=== PATIENT | female | born 1940 | race Caucasian/White ===

== ENCOUNTER 2017-08-13 12:27 | Inpatient (IN) | payer OTHER, MEDICARE ==
[~2017-08-13] VITALS: Ht 152.4 cm; Wt 68.2 kg
[~2017-08-13 12:27] MED LIST: AMLO5TAB88 PO; MOTRIN
[2017-08-13 13:38] LABS: BASOPHILS % 0.4 % (0.0-2.0); EOSINOPHILS % 0.3 % (0.0-5.0); HEMATOCRIT. 43.6 % (36.0-48.0); HEMOGLOBIN. 14.7 g/dL (12.0-16.0); LYMPHOCYTES % 15.9 % (20.0-50.0); MEAN CORPUSCULAR HEMOGLOBIN 27.2 pg (28.0-32.0); MEAN CORPUSCULAR VOLUME 80.7 fL (81.0-99.0); MEAN PLATELET VOLUME 8.3 fl (7.4-10.4); NEUTROPHILS % 76.4 % (40.0-76.0); PLATELET 116 x1000/uL (130-400); RED BLOOD CELL COUNT 5.41 mill/uL (4.2-5.4); RED CELL DISTRIBUTION WIDTH 14.4 % (11.6-14.6)
[2017-08-13 13:44] LABS: PROTHROMBIN TIME 10.7 sec (9.4-11.6)
[2017-08-13 13:49] LABS: CHLORIDE 100 mEq/L (98-107)
[2017-08-13 13:55] LABS: TROPONIN I < 0.02 ng/mL (0.00-0.04)
[2017-08-13 14:22] LABS: HEPATITIS B SURFACE ANTIGEN NEGATIVE
[2017-08-13 14:50] LABS: HEPATITIS B CORE AB IGM NEGATIVE
[2017-08-13 14:52] LABS: HEPATITIS A AB IGM NEGATIVE (NEGATIVE)
[2017-08-13 15:01] LABS: CLARITY URINE CLOUDY (CLEAR); COLOR URINE YELLOW (YELLOW); KETONES URINE 2+ (NEGATIVE); LEUKOCYTE ESTERASE URINE 3+ (NEGATIVE); NITRITE URINE NEGATIVE (NEGATIVE); OCCULT BLOOD URINE 1+ (NEGATIVE); PH URINE 5.5 (4.5-8.0); PROTEIN URINE 1+ (NEGATIVE); SPECIFIC GRAVITY URINE 1.022 (1.005-1.030)
[2017-08-13 15:25] LABS: *AMPHETAMINES SCREEN URINE NEGATIVE (NEGATIVE); *BARBITURATES SCREEN URINE NEGATIVE (NEGATIVE); *BENZODIAZEPINES SCREEN URINE NEGATIVE (NEGATIVE); *COCAINE SCREEN URINE NEGATIVE (NEGATIVE); CANNABINOID URINE SCREEN NEGATIVE (NEGATIVE); METHADONE URINE SCREEN NEGATIVE (NEGATIVE); OPIATES URINE SCREEN NEGATIVE (NEGATIVE); PHENCYCLIDINE URINE SCREEN NEGATIVE (NEGATIVE)
[2017-08-13] MEDS ORDERED: MAGNESIUM/ALUMINUM HYDROXIDE/SIMETHICONE 30ML UDC PO ONE (17:00)
[2017-08-13] MEDS ORDERED: VISCOUS LIDOCAINE 2% 15 ML UDC MM ONE (17:00)
[2017-08-13] MEDS ORDERED: LEVOFLOXACIN 500MG PREMIX 100 ML IV ONE (20:00)
[2017-08-13] MEDS ORDERED: ENOXAPARIN 40MG/0.4ML SYR SUBCUT SCH (20:15)
[2017-08-13] MEDS ORDERED: CLONIDINE 0.1MG TABLET PO PRN (20:15)
[2017-08-13] MEDS ORDERED: ACETAMINOPHEN 325MG TABLET PO PRN (20:15)
[2017-08-13] MEDS ORDERED: LEVOFLOXACIN 500MG PREMIX 100 ML IV SCH (20:15)
[2017-08-13] MEDS ORDERED: IPRATROPIUM/ALBUTEROL 0.5-3(2.5)MG/3ML NEB INH PRN (20:15)
[2017-08-13] MEDS ORDERED: GUAIFENESIN 200MG/10ML SUGAR FREE UDC PO PRN (20:15)
[2017-08-13] MEDS ORDERED: ONDANSETRON HCL 4MG/2ML VIAL IV PRN (20:15)
[2017-08-13] MEDS ORDERED: DIPHENHYDRAMINE 50MG/ML VIAL IV PRN (20:15)
[2017-08-13] MEDS ORDERED: LORAZEPAM 0.5MG TABLET PO PRN (20:45)
[2017-08-13] MEDS ORDERED: NA PHOS,M-B/NA PHOS,DI-BA ENEMA 118ML PR PRN (21:00)
[2017-08-13] MEDS ORDERED: HYDROMORPHONE HCL/PF 2MG/ML CPJ IV PRN (21:00)
[2017-08-13] MEDS: HYDROCODONE/ACETAMINOPHEN 5/325MG TABLET PO PRN (21:31)
[2017-08-13 22:19] LABS: CHLORIDE 99 mEq/L (98-107)
[2017-08-13 22:23] LABS: TROPONIN I < 0.02 ng/mL (0.00-0.04)
[2017-08-13 23:03] VITALS: BP 135/63
[2017-08-13] MEDS ORDERED: VITA400C73 PO (23:35)
[2017-08-14] VITALS: BP 113/54
[2017-08-14 04:00] VITALS: BP 141/56
[2017-08-14] MEDS ORDERED: PNEUMOCOCCAL 23-VAL P-SAC VAC 0.5 ML IM ONE (06:00)
[2017-08-14 08:00] VITALS: BP 131/60
[2017-08-14] MEDS: ASPIRIN 81MG EC TABLET PO SCH (09:21)
[2017-08-14] MEDS ORDERED: PERMETHRIN 5% CREAM 60GM TOP NR (10:00)
[2017-08-14] MEDS: ENOXAPARIN 40MG/0.4ML SYR SUBCUT SCH (11:59)
[2017-08-14 12:00] VITALS: BP 136/51
[2017-08-14 15:04] LABS: BASOPHILS % 0.1 % (0.0-2.0); EOSINOPHILS % 0.1 % (0.0-5.0); HEMATOCRIT. 43.3 % (36.0-48.0); HEMOGLOBIN. 14.6 g/dL (12.0-16.0); LYMPHOCYTES % 9.1 % (20.0-50.0); MEAN CORPUSCULAR HEMOGLOBIN 27.2 pg (28.0-32.0); MEAN CORPUSCULAR VOLUME 80.6 fL (81.0-99.0); MEAN PLATELET VOLUME 9.2 fl (7.4-10.4); MONOCYTES % 6.3 % (2.0-8.0); NEUTROPHILS % 84.4 % (40.0-76.0); PLATELET 151 x1000/uL (130-400); RED BLOOD CELL COUNT 5.38 mill/uL (4.2-5.4); RED CELL DISTRIBUTION WIDTH 14.5 % (11.6-14.6)
[2017-08-14] MEDS: HYDROCODONE/ACETAMINOPHEN 5/325MG TABLET PO PRN ×3 (15:05→23:45)
[2017-08-14 15:18] LABS: CHLORIDE 97 mEq/L (98-107)
[2017-08-14 15:30] LABS: HDL CHOLESTEROL 53 mg/dL (40-59); LDL CHOLESTEROL 42 mg/dL (5-100); TROPONIN I < 0.02 ng/mL (0.00-0.04)
[2017-08-14 16:00] VITALS: BP 133/70
[2017-08-14 20:00] VITALS: BP_SYST 153; BP_SYST 192; BP_DIAS 64; BP_DIAS 94
[2017-08-14] MEDS ORDERED: LEVOFLOXACIN 500MG PREMIX 100 ML IV SCH (21:00)
[2017-08-14] MEDS: LEVOFLOXACIN 500MG PREMIX 100 ML IV SCH (22:16)
[2017-08-15] VITALS: BP 135/64
[2017-08-15 04:00] VITALS: BP 142/64
[2017-08-15 08:00] VITALS: BP 169/62
[2017-08-15] MEDS: ASPIRIN 81MG EC TABLET PO SCH (09:21)
[2017-08-15] MEDS: ENOXAPARIN 40MG/0.4ML SYR SUBCUT SCH (09:21)
[2017-08-15] MEDS: HYDROCODONE/ACETAMINOPHEN 5/325MG TABLET PO PRN ×3 (09:22→21:32)
[2017-08-15 12:00] VITALS: BP 152/60
[2017-08-15 16:00] VITALS: BP 160/68
[2017-08-15] MEDS: MAGNESIUM/ALUMINUM HYDROXIDE/SIMETHICONE 30ML UDC PO PRN (16:58)
[2017-08-15 20:00] VITALS: BP 122/62
[2017-08-15] MEDS: LEVOFLOXACIN 500MG PREMIX 100 ML IV SCH (21:32)
[2017-08-16] VITALS: BP 145/68
[2017-08-16] MEDS: DOCUSATE SODIUM 100MG CAPSULE PO PRN ×2 (00:17→08:52)
[2017-08-16] MEDS: HYDROCODONE/ACETAMINOPHEN 5/325MG TABLET PO PRN ×2 (01:29→07:08)
[2017-08-16 04:00] VITALS: BP 144/62
[2017-08-16] MEDS: MAGNESIUM/ALUMINUM HYDROXIDE/SIMETHICONE 30ML UDC PO PRN (06:15)
[2017-08-16 08:00] VITALS: BP 146/55
[2017-08-16] MEDS: ASPIRIN 81MG EC TABLET PO SCH (08:52)
[2017-08-16] MEDS: ENOXAPARIN 40MG/0.4ML SYR SUBCUT SCH (08:53)
[2017-08-16 09:41] VITALS: BP 146/55
== END 2017-08-16 11:10 | disposition home or self-care (01) | DRG 871 ==
LOC: ER 13:04 → 5WST 18:44 → EDBEDREQ 18:49 → EDBEDREQTM 18:49 → ER 21:30 → ENRESERV 21:35
PROVIDERS: ADMIT Internal Medicine; ATTEND Internal Medicine
DX: A41.9 Sepsis, unspecified organism (principal); J96.00 Acute respiratory failure, unspecified whether with hypoxia or hypercapnia; B85.0 Pediculosis due to Pediculus humanus capitis; E78.5 Hyperlipidemia, unspecified; F17.200 Nicotine dependence, unspecified, uncomplicated; I10 Essential (primary) hypertension; N39.0 Urinary tract infection, site not specified; N81.4 Uterovaginal prolapse, unspecified; B96.89 Other specified bacterial agents as the cause of diseases classified elsewhere; Z79.899 Other long term (current) drug therapy
CPT/HCPCS: 36415; 71045; 74018; 80048; 80053; 80061; 80305; 81003; 83036; 83735; 83880; 84443; 84484; 85025; 85610; 86705; 86709; 86803; 87040; 87086; 87186; 87340; 90732; 93005; 93306; 96365; 97161; 99285; J1650; J1956; J2405; J7050

== ENCOUNTER 2021-03-25 00:41 | Emergency (ER) | payer BC, MEDICARE ==
[~2021-03-25] VITALS: Ht 157.5 cm; Wt 69.0 kg
[~2021-03-25 00:41] MED LIST changes: -AMLO5TAB88 PO; -MOTRIN; +VITA-328 PO
[2021-03-25 02:09] LABS: BASOPHILS % 0.4 % (0.0-2.0); EOSINOPHILS % 1.3 % (0.0-5.0); HEMATOCRIT. 44.5 % (36.0-48.0); HEMOGLOBIN. 14.8 g/dL (12.0-16.0); LYMPHOCYTES % 23.9 % (20.0-50.0); MEAN CORPUSCULAR HEMOGLOBIN 27.2 pg (28.0-32.0); MEAN CORPUSCULAR VOLUME 81.8 fL (81.0-99.0); MEAN PLATELET VOLUME 8.1 fl (7.4-10.4); MONOCYTES % 5.9 % (2.0-8.0); NEUTROPHILS % 68.5 % (40.0-76.0); PLATELET 205 x1000/uL (130-400); RED BLOOD CELL COUNT 5.44 mill/uL (4.2-5.4); RED CELL DISTRIBUTION WIDTH 15.5 % (11.6-14.6)
[2021-03-25 02:17] LABS: PROTHROMBIN TIME 10.5 sec (9.6-11.0)
[2021-03-25 02:20] LABS: CHLORIDE 98 mEq/L (98-107)
[2021-03-25] MEDS ORDERED: HYDRALAZINE 20MG/ML VIAL IV ONE ×2 (02:30→06:30)
[2021-03-25 03:04] LABS: ETHANOL BLOOD < 10 mg/dL
[2021-03-25 04:44] LABS: CLARITY URINE CLEAR (CLEAR); COLOR URINE YELLOW (YELLOW); KETONES URINE NEGATIVE (NEGATIVE); LEUKOCYTE ESTERASE URINE 2+ (NEGATIVE); NITRITE URINE NEGATIVE (NEGATIVE); OCCULT BLOOD URINE NEGATIVE (NEGATIVE); PH URINE 6.5 (4.5-8.0); PROTEIN URINE NEGATIVE (NEGATIVE); SPECIFIC GRAVITY URINE 1.012 (1.005-1.030); UROBILINOGEN URINE 0.2 E.U./dL (0.2-1.0)
[2021-03-25 05:21] LABS: *AMPHETAMINES SCREEN URINE NEGATIVE (NEGATIVE); *BARBITURATES SCREEN URINE NEGATIVE (NEGATIVE); *BENZODIAZEPINES SCREEN URINE NEGATIVE (NEGATIVE); *COCAINE SCREEN URINE NEGATIVE (NEGATIVE)
[2021-03-25 05:22] LABS: CANNABINOID URINE SCREEN NEGATIVE (NEGATIVE); METHADONE URINE SCREEN NEGATIVE (NEGATIVE); OPIATES URINE SCREEN NEGATIVE (NEGATIVE); PHENCYCLIDINE URINE SCREEN NEGATIVE (NEGATIVE)
[2021-03-25 06:49] VITALS: BP 138/84
== END 2021-03-25 06:54 | disposition short-term general hospital (02) ==
LOC: ER 00:41
DX: I16.0 Hypertensive urgency (principal); I10 Essential (primary) hypertension
CPT/HCPCS: 36415; 70450; 71045; 80053; 80305; 80320; 81003; 83880; 84443; 84484; 85025; 85610; 86850; 86900; 86901; 96374; 96376; 99284; J0360; G0480

== ENCOUNTER 2021-06-24 14:44 | Emergency (ER) | payer MEDICARE, OTHER ==
[~2021-06-24] VITALS: Ht 167.6 cm; Wt 75.0 kg
[2021-06-24] MEDS ORDERED: ACETAMINOPHEN 325MG TABLET PO ONE (18:15)
[2021-06-24 19:08] VITALS: BP 145/72
== END 2021-06-24 19:39 | disposition home or self-care (01) ==
LOC: ER 15:04
DX: S09.8XXA Other specified injuries of head, initial encounter (principal); S00.83XA Contusion of other part of head, initial encounter; S49.82XA Other specified injuries of left shoulder and upper arm, initial encounter; I10 Essential (primary) hypertension; M19.90 Unspecified osteoarthritis, unspecified site; W01.198A Fall on same level from slipping, tripping and stumbling with subsequent striking against other object, initial encounter; Y93.9 Activity, unspecified; Y92.89 Other specified places as the place of occurrence of the external cause
CPT/HCPCS: 70486; 71045; 73030; 99284; A4565

== ENCOUNTER 2023-06-01 08:46 | Emergency (ER) | payer MEDICARE, OTHER ==
[~2023-06-01] VITALS: Ht 165.1 cm; Wt 65.0 kg
[2023-06-01 08:48] VITALS: O2SAT 99
[2023-06-01] MEDS ORDERED: ACETAMINOPHEN 325MG TABLET PO STA (09:27)
[2023-06-01 09:54] LABS: BASOPHILS % 0.6 % (0.0-2.0); EOSINOPHILS % 3.9 % (0.0-5.0); HEMOGLOBIN. 12.6 g/dL (12.0-16.0); LYMPHOCYTES % 20.6 % (20.0-50.0); MEAN CORPUSCULAR HEMOGLOBIN 26.5 pg (28.0-32.0); MEAN CORPUSCULAR HGB CONC 31.6 g/dL (31.0-37.0); MEAN CORPUSCULAR VOLUME 83.8 fL (81.0-99.0); MEAN PLATELET VOLUME 8.7 fl (7.4-10.4); NEUTROPHILS % 69.9 % (40.0-76.0); PLATELET 192 x1000/uL (130-400); RED BLOOD CELL COUNT 4.77 mill/uL (4.2-5.4); RED CELL DISTRIBUTION WIDTH 15.7 % (11.6-14.6); WHITE BLOOD COUNT 4.8 x1000/uL (4.5-11.0)
[2023-06-01 10:10] LABS: ALANINE AMINOTRANSFERASE 9 IU/L (10-49); ALBUMIN 3.9 g/dL (3.2-4.8); ASPARTATE AMINOTRANSFERASE 32 IU/L (<34); BILIRUBIN TOTAL 0.6 mg/dL (0.1-1.0); CALCIUM 9.6 mg/dL (8.7-10.4); CARBON DIOXIDE 28 mEq/L (21-32); CHLORIDE 104 mEq/L (98-107); CREATININE 0.7 mg/dL (0.6-1.0); GLUCOSE 121 mg/dL (70-105); POTASSIUM 4.8 mEq/L (3.5-5.1); PROTEIN TOTAL 6.8 g/dL (6.0-8.3); SODIUM 139 mEq/L (136-145); TROPONIN I HIGH SENSITIVITY 13 ng/L (3.0-34); UREA NITROGEN BLOOD 12 mg/dL (9-23)
[2023-06-01 11:03] LABS: CLARITY URINE CLEAR (CLEAR); COLOR URINE YELLOW (YELLOW); GLUCOSE URINE NEGATIVE (NEGATIVE); KETONES URINE NEGATIVE (NEGATIVE); LEUKOCYTE ESTERASE URINE 2+ (NEGATIVE); NITRITE URINE NEGATIVE (NEGATIVE); OCCULT BLOOD URINE NEGATIVE (NEGATIVE); PH URINE 7.5 (4.5-8.0); PROTEIN URINE NEGATIVE (NEGATIVE); SPECIFIC GRAVITY URINE 1.008 (1.005-1.030); UROBILINOGEN URINE 0.2 E.U./dL (0.2-1.0)
[2023-06-01 11:24] LABS: SQUAMOUS EPITHELIAL CELL URINE RARE /lpf (RARE/1+)
[2023-06-01 11:25] LABS: BACTERIA URINE 1+; RBC URINE 0-2 /hpf (0-2)
[2023-06-01] MEDS ORDERED: ACET-2708 MT (11:28)
[2023-06-01] MEDS ORDERED: AMLO5TAB88 MT (11:29)
[2023-06-01 11:31] LABS: *AMPHETAMINES SCREEN URINE NEGATIVE (NEGATIVE); *BARBITURATES SCREEN URINE NEGATIVE (NEGATIVE); *BENZODIAZEPINES SCREEN URINE NEGATIVE (NEGATIVE); *COCAINE SCREEN URINE NEGATIVE (NEGATIVE); CANNABINOID URINE SCREEN NEGATIVE (NEGATIVE); ECSTASY MDMA SCREEN URINE NEGATIVE (NEGATIVE); METHADONE URINE SCREEN Neg (NEGATIVE); OPIATES URINE SCREEN NEGATIVE (NEGATIVE); PHENCYCLIDINE URINE SCREEN NEGATIVE (NEGATIVE)
[2023-06-01 11:48] LABS: ETHANOL BLOOD < 10 mg/dL (<10)
[2023-06-01 13:10] VITALS: BP 142/72; PULSE 80; RESP 16; TEMP 97.9
== END 2023-06-01 13:14 | disposition home or self-care (01) ==
LOC: ER 08:58
DX: S00.83XA Contusion of other part of head, initial encounter (principal); W18.30XA Fall on same level, unspecified, initial encounter; Y93.89 Activity, other specified; Y92.89 Other specified places as the place of occurrence of the external cause; Y99.8 Other external cause status
CPT/HCPCS: 36415; 71045; 80053; 80305; 80320; 81003; 84484; 85025; 99284; G0480